=== PATIENT | male | born 1960 | race Caucasian/White ===

== ENCOUNTER 2018-10-01 20:03 | Emergency (ER) | payer OTHER ==
[~2018-10-01] VITALS: Ht 193 cm; Wt 176.9 kg
[2018-10-01] MEDS ORDERED: PENICILLIN V P500 MG PO (20:46)
[2018-10-01] MEDS ORDERED: NORCO 5-325 TA1 EACH PO (20:46)
== END 2018-10-01 20:54 | disposition home or self-care (01) ==
LOC: ED 20:03
DX: S09.93XA Unspecified injury of face, initial encounter (principal); F17.200 Nicotine dependence, unspecified, uncomplicated; Z88.6 Allergy status to analgesic agent; Z88.5 Allergy status to narcotic agent; W01.10XA Fall on same level from slipping, tripping and stumbling with subsequent striking against unspecified object, initial encounter
CPT/HCPCS: 99282